=== PATIENT | female | born 1950 | race Caucasian/White ===

== ENCOUNTER 2021-02-06 08:58 | Inpatient (IN) | payer MEDICARE ==
[~2021-02-06] VITALS: Ht 167.6 cm; Wt 90.8 kg
[2021-02-06] MEDS ORDERED: FENTANYL PF 100 MCG/2ML IV ONE (09:30)
[2021-02-06] MEDS ORDERED: ROCURONIUM 10 MG/ML,10ML IVPush ONE (09:30)
[2021-02-06] MEDS ORDERED: PROPOFOL 100 ML IV PRN ×3 (09:30→16:00)
[2021-02-06] MEDS ORDERED: PIPERACILLIN/TAZO/PMX 4.5GM 100 ML IV ONE (09:30)
[2021-02-06] MEDS ORDERED: PLEASE ENTER ALLERGIES MC SCH (09:30)
--- NOTE | 2021-02-06 09:49 | NUR ---
TASK RN LATE ENTRY D/T PT CARE: PATEL AND NG TUBE PLACED. PT TOLERATED WELL.
[2021-02-06 09:50] LABS: AMPHETAMINE SCREEN, URINE Negative (Negative); BARBITURATE SCREEN, URINE Negative (Negative); BENZODIAZEPINE SCREEN, URINE Positive (Negative); CANNABINOID SCREEN, URINE Negative (Negative); COCAINE SCREEN, URINE Negative (Negative); METHADONE SCREEN, URINE Negative (Negative); OPIATE SCREEN, URINE Negative (Negative)
[2021-02-06 10:06] LABS: BASOPHILS % (AUTO) 0 % (0-1); EOSINOPHILS % (AUTO) 0 % (1-7); LYMPHOCYTES % (AUTO) 8 % (22-44); MEAN CORPUSCULAR HEMOGLOBIN 31.7 pg (27.0-34.8); MEAN CORPUSCULAR HGB CONC 33.1 g/dL (32.4-35.8); MEAN PLATELET VOLUME 8.8 fL (7.4-10.4); MONOCYTES % (AUTO) 7 % (2-9); NEUTROPHILS % (AUTO) 85 % (42-75); PLATELET COUNT 211 x10^3/uL (130-400); RED BLOOD COUNT 5.09 x10^6/uL (3.82-5.3); RED CELL DISTRIBUTION WIDTH 14.2 % (9.6-15.2)
[2021-02-06 10:07] LABS: INTERNATIONAL NORMALIZED RATIO 1.11 (0.93-1.1); PROTHROMBIN TIME 11.9 Seconds (9.6-11.5)
[2021-02-06] MEDS ORDERED: LINA145C PO (10:07)
[2021-02-06] MEDS ORDERED: VENL25TA33 PO (10:07)
[2021-02-06] MEDS ORDERED: OMEP10CA5 PO (10:07)
[2021-02-06] MEDS ORDERED: ESTR1POW13 PO (10:07)
[2021-02-06 10:09] LABS: ALBUMIN 3.3 g/dL (3.4-5.0); ANION GAP 6 mmol/L (5-15); CALCIUM 8.4 mg/dL (8.5-10.1); CHLORIDE 115 mmol/L (98-107)
--- NOTE | 2021-02-06 10:10 | NUR ---
FRIEND, ANIKA TKCKFADY PH: [phone] ARRIVES W/ PT IDENTIFICATION. 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 I REQUESTED THAT ANIKA BRING THOSE FORMS WITH HER NEXT TIME SHE VISITS. ANIKA RPTS THAT PT LIVES ALONE, HAS HAD A RECENT LOSS OF A "DEAR FRIEND" WELL HER DOG DYING. SHE STATES THAT SHE LAST SAW THE ON SUNDAY 02/04 AND SAID THAT SHE HAD C/O N/V/D.
[2021-02-06 10:13] LABS: ALANINE AMINOTRANSFERASE 25 U/L (12-78); ALKALINE PHOSPHATASE 107 U/L (45-117); BILIRUBIN,TOTAL 0.7 mg/dL (0.2-1.0); CREATINE KINASE, TOTAL 538 U/L (26-192); TOTAL PROTEIN 7.4 g/dL (6.4-8.2); TROPONIN I < 0.015 ng/mL (0.000-0.045)
[2021-02-06 10:19] LABS: T4 (THYROXINE) 6.9 mcg/dL (4.8-13.9)
[2021-02-06] MEDS ORDERED: ACETAMINOPHEN 650 MG SUPP ONE (10:23)
[2021-02-06] MEDS ORDERED: ETOMIDATE 20 MG/10 ML IVPush ONE (10:30)
[2021-02-06] MEDS ORDERED: ACETAMINOPHEN 650 MG SUPP PR ONE (10:30)
[2021-02-06] MEDS ORDERED: ARTIFICIAL TEARS OINT 3.5 GM EACHEYE PRN (10:30)
--- NOTE | 2021-02-06 10:32 | NUR ---
[id number] LATE ENTRY FOR ARRIVAL EVENTS. BIB EMS FROM HOME, 911 REC'D ANNONYMUS CALL RPT THAT PT WAS UNRESPONSIVE IN HER HOME AND WAS LAST SEEN 2 DAYS AGO. CALLER MADE COMMENT THAT PT HAD MADE SI COMMENTS LATELY. PT ARRIVES GCS = 6, 100% NRB. DR HOUSE & RT AT BEDSIDE, PT MEDICATED AND INTUBATED W/O DIFFICULTY. BC X 2 OBTAINED AND LABS DRAWN. 2ND PIV OBTAINED, PROPOFOL STARTED FOR SEDATION, NGT AND PATEL CATH PLACED W/O DIFFICULTY. [address] WITH RN, RT, EMT TRANSPORT. CT COMPLETED W/O INCIDENT AND PT RTD TO ED. POC DISCUSSED WITH DR HOUSE.
[2021-02-06 10:41] LABS: SALICYLATE LEVEL 2.9 mg/dL (2.8-20.0)
[2021-02-06] MEDS ORDERED: BISACODYL 10 MG SUPP PR PRN (11:00)
[2021-02-06] MEDS ORDERED: LACTATED RINGERS 1,000 ML IVBOLUS ONE ×2 (11:00→15:00)
[2021-02-06] MEDS ORDERED: ONDANSETRON 2MG/ML, 2ML IVPush PRN (11:00)
[2021-02-06] MEDS ORDERED: LORazepam 2 MG/ML, 1ML IVPush PRN (11:00)
[2021-02-06] MEDS ORDERED: LABETALOL 5MG/ML, 20ML IVPush PRN (11:00)
[2021-02-06] MEDS ORDERED: LACTATED RINGERS 1,000 ML IV SCH (11:00)
[2021-02-06] MEDS ORDERED: AMPICILLIN/SULBACTAM 3 GM in SODIUM CHLORIDE 0.9% 100 ML IV SCH ×2 (11:00→23:00)
[2021-02-06] MEDS ORDERED: morphine SULFATE 10 MG/ML, 1ML IVPush PRN (11:00)
[2021-02-06] MEDS ORDERED: HEPARIN 5,000 UNITS/ML, 1ML ONE (11:09)
[2021-02-06 11:14] LABS: MD SCAN
[2021-02-06] MEDS: HEPARIN 5,000 UNITS/ML, 1ML SQ SCH ×2 (11:16→18:25)
[2021-02-06] MEDS ORDERED: ETOMIDATE 20 MG/10 ML ONE (11:57)
[2021-02-06] MEDS ORDERED: ROCURONIUM 10MG/ML,5ML ONE (11:57)
[2021-02-06] MEDS ORDERED: PROPOFOL 10 MG/ML, 100ML IV ONE (11:57)
[2021-02-06] MEDS ORDERED: POTASSIUM CHLORIDE 10% 40 MEQ/30 ML UDC PO ONE (12:00)
[2021-02-06 12:22] LABS: MICROSCOPIC AUTO
[2021-02-06] MEDS ORDERED: DEXTROSE 50%, 50ML SYRINGE IVPush PRN (16:00)
[2021-02-06] MEDS ORDERED: GLUCAGON 1 MG IM PRN (16:00)
[2021-02-06] MEDS ORDERED: PHARMACY MAY ADJ FOR RENAL FX MC SCH (16:00)
[2021-02-06] MEDS ORDERED: LIDOCAINE-MPF 1%, 2ML ENDO PRN (16:00)
[2021-02-06] MEDS ORDERED: ONDANSETRON 2MG/ML, 2ML IV PRN (16:00)
[2021-02-06] MEDS ORDERED: DEXTROSE 4 GM TAB.CHEW PO PRN (16:00)
[2021-02-06 17:36] LABS: CLOSTRIDIUM DIFFICILE ANTIGEN NEGATIVE; CLOSTRIDIUM DIFFICILE TOXIN NEGATIVE (Negative)
[2021-02-06] MEDS ORDERED: FAMOTIDINE 20 MG/2 ML IVPush SCH (21:00)
[2021-02-06] MEDS: SODIUM CHLORIDE FLUSH 10ML SYR IVF SCH (23:09)
[2021-02-07] MEDS: ACETAMINOPHEN 325 MG TABLET PO PRN ×2 (00:58→14:50)
[2021-02-07] MEDS: OXYcodone IR 5MG TABLET PO PRN (00:58)
[2021-02-07] MEDS: HEPARIN 5,000 UNITS/ML, 1ML SQ SCH ×3 (03:11→19:49)
[2021-02-07 04:34] LABS: BASOPHILS % (AUTO) 1 % (0-1); EOSINOPHILS % (AUTO) 2 % (1-7); LYMPHOCYTES % (AUTO) 17 % (22-44); MEAN CORPUSCULAR HEMOGLOBIN 31.9 pg (27.0-34.8); MEAN CORPUSCULAR HGB CONC 33.6 g/dL (32.4-35.8); MEAN PLATELET VOLUME 9.2 fL (7.4-10.4); MONOCYTES % (AUTO) 7 % (2-9); NEUTROPHILS % (AUTO) 74 % (42-75); PLATELET COUNT 178 x10^3/uL (130-400); RED BLOOD COUNT 4.54 x10^6/uL (3.82-5.3)
[2021-02-07 04:38] LABS: ALBUMIN 2.8 g/dL (3.4-5.0); ANION GAP 4 mmol/L (5-15); CALCIUM 8.8 mg/dL (8.5-10.1); CHLORIDE 118 mmol/L (98-107)
[2021-02-07 04:41] LABS: ALANINE AMINOTRANSFERASE 21 U/L (12-78); ALKALINE PHOSPHATASE 89 U/L (45-117); BILIRUBIN,TOTAL 1.1 mg/dL (0.2-1.0); CREATINE KINASE, TOTAL 632 U/L (26-192); CREATININE 0.79 mg/dL (0.55-1.02); TOTAL PROTEIN 6.4 g/dL (6.4-8.2)
[2021-02-07 04:47] LABS: MD NO
[2021-02-07] MEDS ORDERED: POTASSIUM PHOSPHATE 44 MEQ in SODIUM CHLORIDE 0.9% 500 ML IV ONE (07:00)
[2021-02-07] MEDS: SENNA/DOCUSATE TABLET PO SCH (08:32)
[2021-02-07] MEDS: SODIUM CHLORIDE FLUSH 10ML SYR IVF SCH ×2 (08:40→20:40)
[2021-02-07] MEDS ORDERED: FAMOTIDINE 20 MG/2 ML IVPush SCH (09:00)
--- NOTE | 2021-02-07 09:22 | NUR ---
TF recs if needed: Vital HP w/ end goal rate of 45mL/hr (on propofol); 50mL/hr (OFF propofol) Addendum: 02/07/21 at [address] Amended: Links added.
[2021-02-07] MEDS: AMPICILLIN/SULBACTAM 3 GM in SODIUM CHLORIDE 0.9% 100 ML IV SCH ×3 (11:28→22:53)
[2021-02-08] MEDS: HEPARIN 5,000 UNITS/ML, 1ML SQ SCH ×3 (03:48→21:03)
[2021-02-08 04:43] LABS: BASOPHILS % (AUTO) 0 % (0-1); EOSINOPHILS % (AUTO) 6 % (1-7); LYMPHOCYTES % (AUTO) 16 % (22-44); MEAN CORPUSCULAR HEMOGLOBIN 31.8 pg (27.0-34.8); MEAN CORPUSCULAR HGB CONC 33.4 g/dL (32.4-35.8); MONOCYTES % (AUTO) 7 % (2-9); NEUTROPHILS % (AUTO) 71 % (42-75); PLATELET COUNT 155 x10^3/uL (130-400); RED CELL DISTRIBUTION WIDTH 13.9 % (9.6-15.2)
[2021-02-08 04:48] LABS: MD NO
[2021-02-08 04:51] LABS: CALCIUM 8.7 mg/dL (8.5-10.1)
[2021-02-08 04:52] LABS: CREATININE 0.51 mg/dL (0.55-1.02)
[2021-02-08 05:02] LABS: ANION GAP 5 mmol/L (5-15); CHLORIDE 117 mmol/L (98-107)
[2021-02-08] MEDS: AMPICILLIN/SULBACTAM 3 GM in SODIUM CHLORIDE 0.9% 100 ML IV SCH ×3 (05:05→16:59)
[2021-02-08] MEDS ORDERED: SODIUM PHOSPHATE 20 MMOL in SODIUM CHLORIDE 0.9% 500 ML IV ONE (07:00)
[2021-02-08] MEDS: POTASSIUM CHLORIDE 20 MEQ TAB.ER.PRT PO SCH ×2 (08:57→17:00)
[2021-02-08] MEDS: SODIUM CHLORIDE FLUSH 10ML SYR IVF SCH ×2 (08:58→22:05)
[2021-02-08] MEDS: SENNA/DOCUSATE TABLET PO SCH (09:00)
[2021-02-08 12:20] VITALS: BP 135/83
[2021-02-08 19:35] VITALS: BP 122/83
[2021-02-08] MEDS: ACETAMINOPHEN 325 MG TABLET PO PRN (21:04)
[2021-02-09] MEDS: AMPICILLIN/SULBACTAM 3 GM in SODIUM CHLORIDE 0.9% 100 ML IV SCH ×2 (01:01→06:33)
[2021-02-09 02:00] VITALS: BP 131/88
[2021-02-09] MEDS: HEPARIN 5,000 UNITS/ML, 1ML SQ SCH ×3 (04:00→20:03)
[2021-02-09 06:16] LABS: BASOPHILS % (AUTO) 0 % (0-1); EOSINOPHILS % (AUTO) 7 % (1-7); LYMPHOCYTES % (AUTO) 17 % (22-44); MEAN CORPUSCULAR HGB CONC 33.1 g/dL (32.4-35.8); MEAN PLATELET VOLUME 9.3 fL (7.4-10.4); MONOCYTES % (AUTO) 7 % (2-9); NEUTROPHILS % (AUTO) 70 % (42-75); PLATELET COUNT 166 x10^3/uL (130-400); RED BLOOD COUNT 5.08 x10^6/uL (3.82-5.3); RED CELL DISTRIBUTION WIDTH 13.9 % (9.6-15.2)
[2021-02-09 06:17] LABS: MD NO
[2021-02-09 06:25] LABS: ANION GAP 5 mmol/L (5-15); CHLORIDE 119 mmol/L (98-107); CREATININE 0.61 mg/dL (0.55-1.02)
[2021-02-09] MEDS ORDERED: SODIUM PHOSPHATE 20 MMOL in SODIUM CHLORIDE 0.9% 500 ML IV ONE (07:00)
[2021-02-09] MEDS: SENNA/DOCUSATE TABLET PO SCH (07:29)
[2021-02-09 08:07] VITALS: BP 138/91
[2021-02-09] MEDS: SODIUM CHLORIDE FLUSH 10ML SYR IVF SCH ×2 (09:00→21:00)
[2021-02-09 12:29] VITALS: BP 129/76
[2021-02-09] MEDS: ACETAMINOPHEN 325 MG TABLET PO PRN ×2 (13:38→20:03)
[2021-02-09 19:18] VITALS: BP 122/70
[2021-02-09] MEDS: OXYcodone IR 5MG TABLET PO PRN (21:56)
[2021-02-10 02:00] VITALS: BP 129/78
[2021-02-10] MEDS: HEPARIN 5,000 UNITS/ML, 1ML SQ SCH ×3 (04:16→20:17)
[2021-02-10 07:03] VITALS: BP 135/80
[2021-02-10] MEDS: SENNA/DOCUSATE TABLET PO SCH (07:49)
[2021-02-10] MEDS: ACETAMINOPHEN 325 MG TABLET PO PRN ×3 (08:23→20:18)
[2021-02-10] MEDS: SODIUM CHLORIDE FLUSH 10ML SYR IVF SCH ×2 (08:25→20:18)
[2021-02-10 12:22] VITALS: BP 134/94
[2021-02-10 19:21] VITALS: BP 124/85
[2021-02-10 23:04] VITALS: BP 132/84
[2021-02-10] MEDS: OXYcodone IR 5MG TABLET PO PRN (23:04)
[2021-02-10] MEDS ORDERED: ONDANSETRON ODT 4 MG ONE (23:16)
[2021-02-11 00:05] VITALS: BP 137/88
[2021-02-11] MEDS: OXYcodone IR 5MG TABLET PO PRN (00:12)
[2021-02-11 05:13] LABS: BASOPHILS % (AUTO) 0 % (0-1); EOSINOPHILS % (AUTO) 8 % (1-7); LYMPHOCYTES % (AUTO) 26 % (22-44); MEAN CORPUSCULAR HEMOGLOBIN 32.2 pg (27.0-34.8); MEAN CORPUSCULAR HGB CONC 33.7 g/dL (32.4-35.8); MEAN PLATELET VOLUME 9.1 fL (7.4-10.4); MONOCYTES % (AUTO) 7 % (2-9); NEUTROPHILS % (AUTO) 59 % (42-75); PLATELET COUNT 173 x10^3/uL (130-400); RED BLOOD COUNT 4.38 x10^6/uL (3.82-5.3); RED CELL DISTRIBUTION WIDTH 13.8 % (9.6-15.2)
[2021-02-11 05:17] LABS: MD NO
[2021-02-11 05:24] LABS: ANION GAP 4 mmol/L (5-15); CALCIUM 8.9 mg/dL (8.5-10.1); CHLORIDE 113 mmol/L (98-107)
[2021-02-11 05:25] LABS: CREATININE 0.55 mg/dL (0.55-1.02)
[2021-02-11] MEDS: HEPARIN 5,000 UNITS/ML, 1ML SQ SCH ×3 (05:28→20:27)
[2021-02-11 06:23] VITALS: BP 112/75
[2021-02-11] MEDS: ACETAMINOPHEN 325 MG TABLET PO PRN ×2 (07:09→20:26)
[2021-02-11] MEDS: SENNA/DOCUSATE TABLET PO SCH (09:00)
[2021-02-11] MEDS: POTASSIUM CHLORIDE 20 MEQ TAB.ER.PRT PO SCH ×2 (09:18→18:20)
[2021-02-11] MEDS: SODIUM CHLORIDE FLUSH 10ML SYR IVF SCH ×2 (09:19→20:27)
[2021-02-11 12:36] VITALS: BP 141/85
[2021-02-11 12:59] LABS: O2 FLOW 2.5 L/min
[2021-02-11 19:34] VITALS: BP 138/85
[2021-02-12 02:00] VITALS: BP 132/81
[2021-02-12 05:10] LABS: CALCIUM 9.1 mg/dL (8.5-10.1); CHLORIDE 113 mmol/L (98-107); CREATININE 0.53 mg/dL (0.55-1.02); TRIGLYCERIDES 317 mg/dL (50-200)
[2021-02-12 05:19] LABS: ANION GAP 2 mmol/L (5-15)
[2021-02-12] MEDS: ACETAMINOPHEN 325 MG TABLET PO PRN ×3 (05:22→20:45)
[2021-02-12] MEDS: HEPARIN 5,000 UNITS/ML, 1ML SQ SCH ×3 (05:22→20:42)
[2021-02-12 06:53] VITALS: BP 115/78
[2021-02-12] MEDS: SODIUM CHLORIDE FLUSH 10ML SYR IVF SCH ×2 (09:00→20:42)
[2021-02-12] MEDS: SENNA/DOCUSATE TABLET PO SCH (09:00)
[2021-02-12] MEDS ORDERED: LOPERAMIDE 2 MG CAPSULE PO PRN (10:30)
[2021-02-12 12:55] VITALS: BP 128/85
[2021-02-12 18:49] VITALS: BP 113/70
[2021-02-13 00:23] VITALS: BP 122/82
[2021-02-13] MEDS: ACETAMINOPHEN 325 MG TABLET PO PRN ×3 (01:24→20:05)
[2021-02-13] MEDS: HEPARIN 5,000 UNITS/ML, 1ML SQ SCH ×3 (05:00→20:05)
[2021-02-13 07:25] VITALS: BP 126/84
[2021-02-13] MEDS: SENNA/DOCUSATE TABLET PO SCH (09:00)
[2021-02-13] MEDS: SODIUM CHLORIDE FLUSH 10ML SYR IVF SCH ×2 (09:39→20:12)
[2021-02-13 13:15] VITALS: BP 130/81
[2021-02-13 19:00] VITALS: BP 126/75
[2021-02-14 00:35] VITALS: BP 118/75
[2021-02-14] MEDS: HEPARIN 5,000 UNITS/ML, 1ML SQ SCH ×3 (04:43→20:16)
[2021-02-14 07:03] VITALS: BP 112/77
[2021-02-14] MEDS: SENNA/DOCUSATE TABLET PO SCH (09:46)
[2021-02-14] MEDS: ACETAMINOPHEN 325 MG TABLET PO PRN ×2 (09:46→20:16)
[2021-02-14] MEDS: SODIUM CHLORIDE FLUSH 10ML SYR IVF SCH ×2 (09:49→20:15)
[2021-02-14 14:00] VITALS: BP 114/78
[2021-02-14 18:44] VITALS: BP 105/62
[2021-02-15 01:28] VITALS: BP 112/78
[2021-02-15] MEDS: ACETAMINOPHEN 325 MG TABLET PO PRN ×3 (04:25→20:10)
[2021-02-15] MEDS: HEPARIN 5,000 UNITS/ML, 1ML SQ SCH ×3 (04:25→20:10)
[2021-02-15 05:41] LABS: BASOPHILS % (AUTO) 1 % (0-1); EOSINOPHILS % (AUTO) 5 % (1-7); LYMPHOCYTES % (AUTO) 35 % (22-44); MEAN CORPUSCULAR HEMOGLOBIN 31.9 pg (27.0-34.8); MEAN CORPUSCULAR HGB CONC 33.3 g/dL (32.4-35.8); MEAN PLATELET VOLUME 9.4 fL (7.4-10.4); MONOCYTES % (AUTO) 8 % (2-9); NEUTROPHILS % (AUTO) 52 % (42-75); PLATELET COUNT 210 x10^3/uL (130-400); RED BLOOD COUNT 4.34 x10^6/uL (3.82-5.3); RED CELL DISTRIBUTION WIDTH 14.1 % (9.6-15.2)
[2021-02-15 05:50] LABS: ALANINE AMINOTRANSFERASE 31 U/L (12-78); ANION GAP 6 mmol/L (5-15); CALCIUM 9.4 mg/dL (8.5-10.1); CHLORIDE 110 mmol/L (98-107)
[2021-02-15 05:53] LABS: ALKALINE PHOSPHATASE 78 U/L (45-117); BILIRUBIN,TOTAL 0.4 mg/dL (0.2-1.0); CREATININE 0.72 mg/dL (0.55-1.02); TOTAL PROTEIN 6.4 g/dL (6.4-8.2)
[2021-02-15 06:23] LABS: MD SCAN
[2021-02-15 07:18] VITALS: BP 142/69
[2021-02-15] MEDS: SENNA/DOCUSATE TABLET PO SCH (08:48)
[2021-02-15] MEDS: SODIUM CHLORIDE FLUSH 10ML SYR IVF SCH ×2 (09:55→20:11)
[2021-02-15 13:08] VITALS: BP 110/80
[2021-02-15 20:00] VITALS: BP 113/74
[2021-02-16 00:52] VITALS: BP 118/76
[2021-02-16 03:49] LABS: BASOPHILS % (AUTO) 1 % (0-1); EOSINOPHILS % (AUTO) 5 % (1-7); LYMPHOCYTES % (AUTO) 39 % (22-44); MEAN CORPUSCULAR HEMOGLOBIN 32.2 pg (27.0-34.8); MEAN CORPUSCULAR HGB CONC 33.7 g/dL (32.4-35.8); MEAN PLATELET VOLUME 9.1 fL (7.4-10.4); MONOCYTES % (AUTO) 9 % (2-9); NEUTROPHILS % (AUTO) 46 % (42-75); PLATELET COUNT 215 x10^3/uL (130-400); RED BLOOD COUNT 4.35 x10^6/uL (3.82-5.3); RED CELL DISTRIBUTION WIDTH 14.3 % (9.6-15.2)
[2021-02-16 03:56] LABS: MD NO
[2021-02-16 03:58] LABS: ANION GAP 5 mmol/L (5-15); CALCIUM 9.6 mg/dL (8.5-10.1); CHLORIDE 111 mmol/L (98-107); CREATININE 0.66 mg/dL (0.55-1.02)
[2021-02-16] MEDS: ACETAMINOPHEN 325 MG TABLET PO PRN ×2 (04:45→20:29)
[2021-02-16] MEDS: HEPARIN 5,000 UNITS/ML, 1ML SQ SCH ×3 (04:47→20:26)
[2021-02-16 06:47] VITALS: BP 132/87
[2021-02-16] MEDS: SODIUM CHLORIDE FLUSH 10ML SYR IVF SCH ×2 (07:53→20:26)
[2021-02-16] MEDS: SENNA/DOCUSATE TABLET PO SCH (07:57)
[2021-02-16 12:08] VITALS: BP 118/81
[2021-02-16 19:49] VITALS: BP 104/71
[2021-02-17 02:00] VITALS: BP 111/78
[2021-02-17] MEDS: HEPARIN 5,000 UNITS/ML, 1ML SQ SCH ×2 (05:27→13:00)
[2021-02-17 06:56] VITALS: BP 114/76
[2021-02-17] MEDS: SENNA/DOCUSATE TABLET PO SCH (09:00)
[2021-02-17] MEDS: SODIUM CHLORIDE FLUSH 10ML SYR IVF SCH (09:04)
[2021-02-17 11:32] VITALS: BP 109/78
[2021-02-18] MEDS ORDERED: OMEP40CA42 PO (11:39)
[2021-02-18] MEDS ORDERED: DIAZ10TA4 PO (11:39)
[2021-02-18] MEDS ORDERED: LEVO25TA2 PO (11:39)
[2021-02-18] MEDS ORDERED: ALPR2TAB2 PO (11:39)
[2021-02-18] MEDS ORDERED: VENL150C PO (11:39)
[2021-02-18] MEDS ORDERED: ESTR1TAB17 PO (11:40)
[2021-02-18] MEDS ORDERED: ATOR20TA PO (15:11)
[2021-02-18] MEDS ORDERED: ATOR-2 PO (15:11)
== END 2021-02-17 16:23 | DRG 871 ==
LOC: EDBD → MERGE 08:58 → ED 10:27 → EDIP 10:48 → CSU 11:34 → CCU 16:11 → 4WST 02-08 12:22
PROVIDERS: ADMIT Internal Medicine; ATTEND Internal Medicine
PROC: 0T9B70Z Drainage of Bladder with Drainage Device, Via Natural or Artificial Opening (ICD-10-PCS; principal; 2021-02-06)
PROC: 5A1945Z Respiratory Ventilation, 24-96 Consecutive Hours (ICD-10-PCS; 2021-02-06)
PROC: 0BH17EZ Insertion of Endotracheal Airway into Trachea, Via Natural or Artificial Opening (ICD-10-PCS; 2021-02-06)
DX: A41.9 Sepsis, unspecified organism (principal); J69.0 Pneumonitis due to inhalation of food and vomit; J96.01 Acute respiratory failure with hypoxia; N17.0 Acute kidney failure with tubular necrosis; G92 Toxic encephalopathy; M62.82 Rhabdomyolysis; T42.4X2A Poisoning by benzodiazepines, intentional self-harm, initial encounter; Z20.822 Contact with and (suspected) exposure to COVID-19; E83.39 Other disorders of phosphorus metabolism; E87.6 Hypokalemia; E88.09 Other disorders of plasma-protein metabolism, not elsewhere classified; F32.9 Major depressive disorder, single episode, unspecified; K58.0 Irritable bowel syndrome with diarrhea; Z79.890 Hormone replacement therapy; Y92.89 Other specified places as the place of occurrence of the external cause
CPT/HCPCS: 36415; 36600; 70450; 70551; 71045; 80048; 80053; 80299; 80307; 80320; 80329; 81001; 82140; 82550; 82803; 83036; 83605; 83690; 83735; 83880; 84100; 84145; 84436; 84443; 84478; 84484; 85025; 85610; 85730; 87040; 87070; 87081; 87205; 87324; 87635; 93005; 94002; 94003; 99291; G0378; J0295; J1644; J2405; J2543; J2704; 92523-GN; G0480; J7040; J7120